=== PATIENT | female | born 1995 | race Caucasian/White ===

== ENCOUNTER 2017-03-05 05:00 | Emergency (ER) | payer BC ==
--- NOTE | ~2017-03-05 | CR127 ---
[facility] A Service of [facility] & [facility] / [facility] RADIOLOGY TEXT RESULTS PATIENT: NICOLAS ROTH LOCATION: SED : [birth year] UNIT #: [id number] AGE: [address]: Alphonse Dalal MD SEX: F ORDER DR: [id number] [place] [id number] E MR#: [id number] Acc #: [id number] NAME: NICOLAS ROTH. : 1995 SEX: F STUDY DATE/TIME: 03/05/2017 5:30 UNIT: SED ROOM: STUDY DESCRIPTION: CR Foot Complete Min 3 View Rt Attending Physician: Alphonse Dalal M.D. Ordering Physician: Alphonse Dalal M.D. MEDICAL IMAGING REPORT This report is preliminary unless electronic signature is present. EXAM Right foot series INDICATIONS Right foot pain after an injury on Saturday. PROCEDURE Four views of the right foot COMPARISON None FINDINGS No acute fracture or dislocation. IMPRESSION No acute findings Dictated by... Buster Ray M.D. THIS IS AN ELECTRONICALLY VERIFIED REPORT Buster Ray M.D. at 03/05/2017 9:55 PM VERONICA/portia TD: 03/05/2017 12:48 JOB #: [id number] MEDICAL IMAGING REPORT Page 1 of 1
[2017-03-05] MEDS ORDERED: NO MEDICATIONS (05:11)
== END 2017-03-05 07:10 | disposition home or self-care (01) ==
LOC: SED 05:00
DX: S90.31XA Contusion of right foot, initial encounter (principal); F17.200 Nicotine dependence, unspecified, uncomplicated; W19.XXXA Unspecified fall, initial encounter; Y92.009 Unspecified place in unspecified non-institutional (private) residence as the place of occurrence of the external cause
CPT/HCPCS: 73630; 99283